=== PATIENT | female | born 1965 | race Caucasian/White ===

== ENCOUNTER 2017-03-21 08:44 | Outpatient (CLI) | payer OTHER ==
--- NOTE | 2017-03-21 11:52 | MMO ---
BILATERAL SCREENING MAMMOGRAM: HISTORY: A 51-year-old female for screening mammography. COMPARISON: 02/09/16, 01/03/15, 12/08/13. FINDINGS: Bilateral MLO and CC views of the breasts show predominantly fatty-replaced breast parenchyma. There is a benign-appearing calcification in the left breast. There is no evidence of suspicious mass, suero spicious clustered microcalcifications, or area of architectural distortion. Interpretation of this mammogram was performed with the assistance of computer-aided detection. IMPRESSION: BI-RADS category 2 - benign findings. Annual screening mammography is recommended. POS: [facility]
== END 2017-03-21 08:45 | disposition home or self-care (01) ==
LOC: SCSMAMMO 08:44
PROVIDERS: ATTEND Family Medicine
DX: Z12.31 Encounter for screening mammogram for malignant neoplasm of breast (principal)
CPT/HCPCS: 77067; G0202

== ENCOUNTER 2017-10-15 09:11 | Outpatient (CLI) | payer OTHER ==
[2017-10-15 10:31] LABS: Hemoglobin 12.8 g/dL (12.0-16.0); Mean Corpuscular HGB CONC 33.9 g/dL (32.0-36.0); Mean Corpuscular Hemoglobin 32.4 pg (27.0-31.0); Mean Corpuscular Volume 95.6 fL (78.0-98.0); Mean Platelet Volume 7.9 fL (7.4-10.4); Platelet Count 268 thou/uL (130-400); RBC Distribution Width 11.8 % (11.5-14.5); Red Blood Cell (RBC) Count 3.96 mill/uL (4.20-5.40); White Blood Cell (WBC) Count 9.6 thou/uL (4.8-10.8)
[2017-10-15 10:40] LABS: PTT 29.7 SEC (22.9-36.1)
[2017-10-15 10:45] LABS: Anion Gap 11 mmol/L (10-20); BUN (Urea Nitrogen) 19 mg/dL (9.8-20.1); Calc. Creatinine Clearance 0 mL/min (70-130); Calcium 9.2 mg/dL (7.8-10.44); Carbon Dioxide 25 mmol/L (22-29); Chloride 109 mmol/L (98-107); Estimated GFR-MDRD 78; Glucose 93 mg/dL (70-105); Potassium 4.1 mmol/L (3.5-5.1); Sodium 141 mmol/L (136-145)
--- NOTE | 2017-10-16 15:19 | EKG ---
Test Reason : Blood Pressure : / mmHG Vent. Rate : 073 BPM Atrial Rate : 073 BPM P-R Int : 144 ms QRS Dur : 072 ms QT Int : 376 ms P-R-T Axes : 061 065 026 degrees QTc Int : 414 ms Normal sinus rhythm Low voltage QRS Borderline ECG Confirmed by MISHEL HEARD ([id number]) on 10/16/2017 3:18:36 PM Referred By: JIM Confirmed By:MISHEL HEARD
== END 2017-10-15 09:12 | disposition home or self-care (01) ==
LOC: LABBT 09:11
PROVIDERS: ATTEND Urology
DX: Z01.818 Encounter for other preprocedural examination (principal)
CPT/HCPCS: 80048; 81001; 85027; 85610; 85730; 87086; 93005; 93010

== ENCOUNTER 2017-10-16 08:44 | Day surgery (SDC) | payer OTHER ==
[2017-10-15 09:48] VITALS: BMI 30.4
[2017-10-16] MEDS ORDERED: cefTRIAXone\\ROCEPHIN 2 GM in Sodium Chloride 0.9% 100 ML IVPB SCH (11:00)
--- NOTE | 2017-10-16 11:59 | RAD ---
KUB: Date: 10/16/17 INDICATION: History of preop. COMPARISON: CT abdomen and pelvis dated 10/04/17. FINDINGS: 7.0 mm distal left ureteral calculus does not appear appreciably changed from the comparison examinat ion and likely still present at the left UPJ. There is a 1.5 cm staghorn calculus overlying the right mid kidney. There are other punctate nonobstructing calculi involving the right kidney. Small phlebo liths seen within the lower pelvis. There are vascular clips within the lower left quadrant of the ab domen. There are suture lines seen within the right lower quadrant of the abdomen near the cecum. No acute osseous abnormality is evident. IMPRESSION: 1. Stable distal left ureteral calculus measuring 7.0 mm. 2. Stable right nephrolithiasis. POS: [facility]
[2017-10-16] MEDS ORDERED: Fentanyl 100 MCG/2 ML VIAL ONE ×2 (12:36→14:02)
[2017-10-16] MEDS ORDERED: PROPOFOL 200 MG/20 ML VIAL ONE (13:36)
[2017-10-16] MEDS ORDERED: Dexamethasone 20 MG/5 ML VIAL ONE (13:36)
[2017-10-16] MEDS ORDERED: Ondansetron HCl/PF 4 MG/2 ML Vial ONE (13:36)
[2017-10-16] MEDS ORDERED: Iothalamate Meglumine 60% 50 ML VIAL FS ONE (14:03)
[2017-10-16] MEDS ORDERED: Phenazopyridine HCl 97.5 MG TABLET ONE (14:18)
[2017-10-16] MEDS ORDERED: Oxybutynin 5 MG TAB ONE (14:18)
--- NOTE | 2017-10-16 14:37 | OP ---
DATE OF SERVICE: 10/16/2017 PCP: Dr. Shrestha. PREOPERATIVE DIAGNOSES: 1. A 52-year-old female with history of recurrent kidney stone with left distal ureteral stone, 8 mm , with moderate hydronephrosis. 2. Nonobstructing right renal calculi x4, right lower pole 1.5 x 9 mm, 2-4 mm punctate stones, 3-4 i n number. POSTOPERATIVE DIAGNOSES: 1. A 52-year-old female with history of recurrent kidney stone with left distal ureteral stone, 8 mm , with moderate hydronephrosis. 2. Nonobstructing right renal calculi x4, right lower pole 1.5 x 9 mm, 2-4 mm punctate stones, 3-4 i n number. PROCEDURES PERFORMED: Cystoscopy, bilateral retrograde, left dilation of the intramural ureter, rigi d ureteroscopy, laser lithotripsy of left distal intramural stone, 6 x 28 double-J ureteral stent mona cement with dangler. SURGEON: Cristy Wilkins D.O. ANESTHESIA: General. COMPLICATIONS: None apparent. SPECIMEN: Stone fragments for chemical analysis. INTRAOPERATIVE FINDINGS: 1. Large left distal ureteral stone at the level of the intramural/just proximal to the intramural u reter, radiopaque. 2. Right retrograde pyelogram negative for hydronephrosis or filling defect, nonobstructing large ri ght lower pole renal calculi. INDICATIONS FOR THE PROCEDURE AND HISTORY: Ms. Plummer is a 52-year-old female, last seen in 2012 u nderwent ureteral stone treatment. She represented as she had some discomfort in the left lower quad rant. Had a CT scan obtained by PCP demonstrating stone nidus as above. She presents today for uret eroscopy and laser lithotripsy. She has been relatively stone free, however, she has not passed a st one desired to proceed with elective ureteroscopy. Risks and complications of the procedure was revi ewed with her in detail including, but not limited to, bleeding, pain, infection, injury to adjacent organs, urosepsis, ureteral renal injury, stricture formation. She has had vague right lower back pa in. Therefore, I also offered a right retrograde pyelogram. She desired to proceed. DESCRIPTION OF THE PROCEDURE: After an informed consent is signed, the patient is taken to the opera ting room, placed in a dorsal lithotomy position with the genital area prepped and draped in the usua l surgical sterile fashion. Her urine culture is negative thus far. We did provide Rocephin. A 21- Vietnamese cystoscope was utilized for cystoscopy which demonstrated unremarkable bladder. There was no stone within the bladder itself. The UO was identified in normal anatomical location. The left UO w as identified and appeared somewhat small in caliber. It was intubated without any problems and a re trograde pyelogram demonstrated a large stone in the left intramural ureter. A 0.35 sensor wire was carefully negotiated into the left upper pole. At this time, we did dilate the intramural ureter wit h [employer] 12 Vietnamese 4 cm balloon just distal to the stone. The balloon was subsequently de flated and we passed a rigid ureteroscope without difficulty. A large spiculated renal stone was not ed, this had some mucosal embedment consistent with an obstructing stone. We laser lithotripsied the stone with 365 micron fiber at 1.0 joules. The stone fragmented into multiple tiny pieces. We did take care to break the stone carefully as there was some evidence of stone adherent to the ureteral m ucosa. We laser lithotripsied the stone rendered free. We evacuated all stone successfully without ureteral trauma. I did pass the rigid ureteroscope to the level of the proximal ureter at the level of L2-3 level with no evidence of obvious stone nidus. We surveyed the ureter, which demonstrated no evidence of ureteral mucosal trauma from the ureteroscopy. Again bullous edema where the stone obst ructing was noted. A 6 x 28 double-J ureteral stent was passed without difficulty. Bladder was comp letely emptied. As there is endoscopic clearance, the stent was left on dangler taped to the patient 's pubic symphysis. She will follow up with me next for cystoscopy stent pull on dangler my office. She is discharged with Omnicef until followup appointment, Colace p.r.n., VESIcare 5 mg one p.o. daily, AZO p.r.n., [place] 5/325, #50 p.r.n.
--- NOTE | 2017-10-16 14:41 | RAD ---
RETROGRADE IVP: HISTORY: A 52-year-old female with left ureteral calculus and nonobstructing right renal calculi. FINDINGS: Distal left ureteral obstructing calculus with dilatation of the proximal ureter and upper collecting system with follow-up placement of a stent. Injection of the right ureter demonstrates no evidence for ureteral calculus or ureteral obstruction. IMPRESSION: Obstructing distal left ureteral calculus with follow-up left ureteral stent placement. POS: [facility]
== END 2017-10-16 15:50 | disposition home or self-care (01) ==
LOC: SDC 08:44
PROVIDERS: ATTEND Urology
PROC: 0T768DZ Dilation of Right Ureter with Intraluminal Device, Via Natural or Artificial Opening Endoscopic (ICD-10-PCS; principal; 2017-10-16)
PROC: 0TF38ZZ Fragmentation in Right Kidney Pelvis, Via Natural or Artificial Opening Endoscopic (ICD-10-PCS; principal; 2017-10-16)
DX: N13.2 Hydronephrosis with renal and ureteral calculous obstruction (principal); M54.31 Sciatica, right side; F17.200 Nicotine dependence, unspecified, uncomplicated; Z88.1 Allergy status to other antibiotic agents; Z79.899 Other long term (current) drug therapy
CPT/HCPCS: 74018; 74420; 82365; 88300; 96374; C1758; C1769; J0696; J1100; J2405; J2704; J3010; J7050; Q9961

== ENCOUNTER 2017-12-02 10:12 | Outpatient (CLI) | payer OTHER | END 2017-12-02 10:13 | disposition home or self-care (01) | LOC: BICULT 10:12 | PROVIDERS: ATTEND Urology | DX: N20.0 Calculus of kidney (principal) | CPT/HCPCS: 36415; 74018; 76770; 80048; 81001; 87086 ==

== ENCOUNTER 2018-01-14 11:15 | Day surgery (SDC) | payer OTHER ==
[2018-01-14] MEDS ORDERED: Iothalamate Meglumine 60% 50 ML VIAL FS ONE (11:19)
[2018-01-14] MEDS ORDERED: Midazolam HCl 2 mg/2 ml Vial ONE (11:27)
[2018-01-14] MEDS ORDERED: Ondansetron HCl/PF 4 MG/2 ML Vial ONE (11:36)
[2018-01-14] MEDS ORDERED: PROPOFOL 200 MG/20 ML VIAL ONE (11:36)
[2018-01-14] MEDS ORDERED: Lidocaine 1% PF 5 ML VIAL ONE (11:36)
[2018-01-14] MEDS ORDERED: PHENYLEPHRINE-NS 100 MCG/ML 10 ML SYRINGE ONE (11:36)
[2018-01-14] MEDS ORDERED: Oxybutynin 5 MG TAB ONE (12:40)
[2018-01-14] MEDS ORDERED: Phenazopyridine HCl 97.5 MG TABLET ONE (12:40)
[2018-01-14] MEDS ORDERED: Fentanyl 100 MCG/2 ML VIAL ONE (12:50)
--- NOTE | 2018-01-14 13:54 | OP ---
DATE OF SERVICE: 01/14/2018 PREOPERATIVE DIAGNOSES: 1. History of large right renal pelvic stone now migrated into the UPJ measuring 14 mm. 2. Multiple right renal calculi, 3-4 mm in size. POSTOPERATIVE DIAGNOSES: 1. History of large right renal pelvic stone now migrated into the UPJ measuring 14 mm. 2. Multiple right renal calculi, 3-4 mm in size. PROCEDURE: Cystoscopy, right retrograde, 6 x 28 double-J ureteral stent. SURGEON: Cristy Wilkins D.O. ANESTHESIA: General. COMPLICATIONS: None apparent. DISPOSITION: To the recovery room in stable condition. SPECIMEN: None. INDICATIONS FOR THE PROCEDURE AND HISTORY: Ms. Plummer is a 52-year-old female well known to me for recurrent kidney stone. She was scheduled to have elective treatment of a large renal stone, howeve r, she presented to the emergency room due to distal migration of a large renal stone, now in the UPJ causing obstruction. She desires to proceed with stent. Risks and complications and indications re viewed including, but not limited to, bleeding, pain, infection, injury to adjacent organs, urosepsis , ureteral renal bladder injury. She desires to proceed. DESCRIPTION OF THE PROCEDURE: After an informed consent is signed, the patient was taken to the oper ating room, placed in a dorsal lithotomy position with the genital area prepped and draped in the usu al surgical sterile fashion. Broad-spectrum antibiotics were provided. A 21-Romanian cystoscope was u tilized, which demonstrated normal bladder mucosa. The UO was identified in normal anatomical locati on. She has a mild prolapse deviating the ureter distally. The UO's were identified. An open-ended catheter was passed without difficulty. This was passed to the level of the large renal pelvic ston e. I did perform a gentle retrograde pyelogram with 1:1 diluted contrast which demonstrated an obstr ucting stone. The stone was pushed to the renal pelvis. A 0.35 sensor wire was passed without diffi culty and a 6 x 28 double-J ureteral stent was passed without significant issues. She tolerated the procedure well and transported to the recovery room in stable condition. She will be discharged home with broad-spectrum antibiotics, Omnicef for a few days, [place] 5/325 #30, AZO p.r.n., VESIcare for b ladder spasm. She will follow up with me regarding to proceed with ureteroscopy, laser lithotripsy a t a later date.
--- NOTE | 2018-01-14 14:00 | RAD ---
RETROGRADE PYELOGRAM TWO VIEWS TAKEN IN OR: Indications: Right side renal stone. Images performed during retrograde procedure. FINDINGS/IMPRESSION: The initial image shows opacifications of the right collecting structures. There is a filling defect in the right renal pelvis, consistent with a calculus. The final image reveals right double pigtail ureteral stent in place. POS: [facility]
--- NOTE | 2018-01-14 15:47 | CON ---
DATE OF CONSULTATION: 01/14/2018 HISTORY OF PRESENT ILLNESS: Ms. 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 She previously underwent a left ureteroscopy, laser lithotripsy, subsequent stent removal. She has been fully informed regarding her large right contralateral kidney stone as scheduled for staged intervention of her right renal lithiasis end this month. She presented to the emergency room in [place] due to acute onset of right flank pain. She was provided pain medication. No fever. Presents as a transfer from [place] [facility] due to large right obstructing UPJ stone. The pain started this morning, denies chills. PAST MEDICAL HISTORY: Fibromyalgia, recurrent kidney stones, GERD, anxiety. PAST SURGICAL HISTORY: Hysterectomy, 1999; bilateral tubal ligation, 1994; history of right stent, ureteroscopy, laser lithotripsy, 11/2011; history of left ureteroscopy, laser lithotripsy, 10/16/2017 with subsequent stent pull. SOCIAL HISTORY: Tobacco abuse history, works as a nurse in [employer]. HOME MEDICATIONS: Include Advil, fludrocortisone, fexofenadine, bupropion, Klonopin p.r.n. ALLERGIES: Allergic to CIPROFLOXACIN, which causes rash. PHYSICAL EXAMINATION: VITAL SIGNS: Stable in the emergency room with no fever. HEENT: Grossly unremarkable. HEART: Regular rate. LUNGS: Clear. ABDOMEN: Soft, nontender, nondistended, vague right flank pain, no rigidity, no rebound is appreciated. GENITOURINARY EXAM: Atrophic vaginitis, otherwise negative. EXTREMITIES: No cyanosis, clubbing, or edema. PERTINENT LABORATORY DATA: Her prior CT scan from 09/2017 demonstrates left hydronephrosis, left ureteropelvic junction stone 7-8 mm, nonobstructing right renal calculi x4, right lower pole 1.5 cm stone. Her recent CT scan performed this morning without contrast dated 01/14/2018 demonstrates proximal migration of the large renal stone, measuring 14 mm, now in the UPJ with hydronephrosis. Multiple right renal calculi as previous. Left kidney is unremarkable with no evidence of ureteral renal calculi. IMPRESSION/PLAN: Ms. Plummer is a 52-year-old female with, 1. Recurrent kidney stone. She previously underwent a left ureteroscopy, laser lithotripsy with clearance. 2. Presents for right ureteropelvic junction stone. Previous large right renal stone has now migrated, now obstructing the ureteropelvic junction. Given large stone burden, she is to undergo cystoscopy, stent placement. Indications reviewed and she desires to proceed. MAGGY
== END 2018-01-14 14:14 | disposition home or self-care (01) ==
LOC: SDC 11:15
PROVIDERS: ATTEND Urology
PROC: 0T768DZ Dilation of Right Ureter with Intraluminal Device, Via Natural or Artificial Opening Endoscopic (ICD-10-PCS; principal; 2018-01-14)
DX: N20.2 Calculus of kidney with calculus of ureter (principal); Z88.1 Allergy status to other antibiotic agents
CPT/HCPCS: 74420; 96374; C1758; C1769; J2001; J2250; J2405; J2704; J3010; Q9961

== ENCOUNTER 2018-01-29 10:36 | Day surgery (SDC) | payer OTHER ==
[2018-01-28 13:29] VITALS: BMI 30.6
[2018-01-29] MEDS ORDERED: Piperacillin/Tazobactam 3.375 GM in Sodium Chloride 0.9% 100 ML IVPB SCH (11:00)
[2018-01-29 11:24] LABS: Hemoglobin 11.9 g/dL (12.0-16.0); Mean Corpuscular HGB CONC 32.9 g/dL (32.0-36.0); Mean Corpuscular Hemoglobin 31.8 pg (27.0-31.0); Mean Corpuscular Volume 96.7 fL (78.0-98.0); Platelet Count 295 thou/uL (130-400); RBC Distribution Width 12.1 % (11.5-14.5); Red Blood Cell (RBC) Count 3.74 mill/uL (4.20-5.40); White Blood Cell (WBC) Count 7.1 thou/uL (4.8-10.8)
[2018-01-29 11:29] LABS: INR-International Normal Ratio 1.1; PTT 33.7 SEC (22.9-36.1); Prothrombin Time 14.2 SEC (12.0-14.7)
[2018-01-29 11:38] LABS: Anion Gap 9 mmol/L (10-20); BUN (Urea Nitrogen) 17 mg/dL (9.8-20.1); Calc. Creatinine Clearance 99 mL/min (70-130); Calcium 9.2 mg/dL (7.8-10.44); Carbon Dioxide 24 mmol/L (22-29); Chloride 109 mmol/L (98-107); Estimated GFR-MDRD 78; Glucose 98 mg/dL (70-105); Potassium 3.9 mmol/L (3.5-5.1); Sodium 138 mmol/L (136-145)
--- NOTE | 2018-01-29 12:48 | RAD ---
SUPINE ABDOMEN: History: Pre op. Right renal stone. FINDINGS/IMPRESSION: There is a double pigtail right ureteral stent noted. There is an oblong shaped calculus overlying th e mid right kidney measuring up to 1.7 cm. Bowel gas pattern is unremarkable. Numerous phlebolith type calcifications in the pelvis. POS: [facility]
[2018-01-29] MEDS ORDERED: Famotidine/PF 20 mg/2ml Vial ONE (13:07)
[2018-01-29] MEDS ORDERED: Fentanyl 100 MCG/2 ML VIAL ONE ×2 (13:07→14:56)
[2018-01-29] MEDS ORDERED: Glycopyrrolate 0.2 MG/ML 5 ML SYRINGE ONE (13:34)
[2018-01-29] MEDS ORDERED: Ondansetron HCl/PF 4 MG/2 ML Vial ONE (13:34)
[2018-01-29] MEDS ORDERED: PROPOFOL 200 MG/20 ML VIAL ONE (13:34)
[2018-01-29] MEDS ORDERED: Dexamethasone 20 MG/5 ML VIAL ONE (13:34)
[2018-01-29] MEDS ORDERED: Lidocaine 1% PF 5 ML VIAL ONE (13:34)
[2018-01-29] MEDS ORDERED: HYDROmorphone 2 MG/ML VIAL ONE (14:36)
[2018-01-29] MEDS ORDERED: Oxybutynin 5 MG TAB ONE (14:52)
[2018-01-29] MEDS ORDERED: Phenazopyridine HCl 97.5 MG TABLET ONE (14:52)
--- NOTE | 2018-01-29 15:59 | RAD ---
RETROGRADE PYELOGRAM: HISTORY: A 52-year-old female with a history of right-sided ureteroscopy. COMPARISON: 01/14/2018. FINDINGS: Two spot films are available for interpretation. There is a right ureteral stent in place. There ar e several right-sided calcified phleboliths. A large right lower pole previously noted renal calculu s is no longer evident. IMPRESSION: Right ureteral stent. POS: [facility]
--- NOTE | 2018-01-29 16:13 | OP ---
DATE OF SERVICE: 01/29/2018 PREOPERATIVE DIAGNOSES: 1. A 52-year-old female with history of recurrent kidney stone, right flank pain due to migration of right 1.5 cm lower pole stone, status post stent. 2. Right nonobstructing renal calculi x2 : 5-6 mm each. POSTOPERATIVE DIAGNOSES: 1. A 52-year-old female with history of recurrent kidney stone, right flank pain due to migration of right 1.5 cm lower pole stone, status post stent. 2. Right nonobstructing renal calculi x2; 5- 6 mm each PROCEDURE: Cystoscopy, right retrograde pyelogram, flexible ureteroscopy, pyeloscopy, laser lithotripsy of multiple renal calculi, basket extraction of stone fragments, 6 x 28 double-J ureteral stent exchange. SURGEON: Cristy Wilkins D.O. ANESTHESIA: General. COMPLICATIONS: None apparent. DISPOSITION: To the recovery room in stable condition. SPECIMEN: Stone for chemical analysis. 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 She underwent treatment of a left urolithiasis in October, she was informed regarding elective treatment of her large right lower pole stone. She was scheduled for this today; however, presented approximately 2 weeks ago and she presented with acute flank pain as there was migration of the large 1.5 cm stone into the UPJ proximal ureter status post stent. She presents today for ureteroscopy, laser lithotripsy. I discussed with patient in detail regarding alternative option including ESWL, percutaneous nephrolithotomy. Risks and complications and stone free rate with each modality was reviewed with her in detail. She has chosen ureteroscopy, laser lithotripsy. With a full understanding, we had a possible secondary procedure due to persistent stone nidus. All questions answered to her satisfaction, she desired to proceed. DESCRIPTION OF THE PROCEDURE: After an informed consent is signed, the patient is taken to the operating room, placed in a dorsal lithotomy position with the genital prepped and draped in the usual surgical sterile fashion. Broad- spectrum antibiotics were provided. Bilateral MARY hose, SCDs were placed. A 21 -Turkmen cystoscope was utilized for cystoscopy and a previously placed ureteral stent was removed to the level of the meatus and a 0.35 sensor wire was placed through the stent into the right upper pole. The stone was clearly visible on colposcopy due to large radiopaque density. At this time, a 10 Turkmen dual- lumen access sheath was passed over the guidewire and a retrograde pyelogram was performed confirming proper placement of wire and a second 0.35 Super Stiff working wire was placed. The dual-lumen access sheath was then completely removed, and the safety wire secured. Using the Super Stiff wire 13/15 Turkmen x 28 navigator was able to be passed without difficulty as she had an indwelling stent for approximately 2 weeks. This passed without difficulty to the proximal ureter and a flexible ureteroscope, digital disposable scope was passed over the working wire to the level of the renal pelvis upper pole. The wire was then removed and we surveyed the collecting system demonstrating a large right lower pole stone. There was a second nidus in the right mid pole ovoid stuck to the renal papilla, approximately 3-4 mm in the right lower pole anterior calyceal stones curvilinear flat in nature approximately 5-6 mm. We laser lithotripsied the large stone burden measuring 1.5 cm first using 365 micron laser fiber. That setting was utilized and we fragmented the stone into multiple fragmented debris. Using 0 tip nitinol basket, we retrieved these atraumatically through the sheath. At the end of the procedure, what remained of the main stone nidus was dust-like stone debris. At this time, we paid attention to the right mid pole stone which was basket extracted intact without any difficulty. The right lower pole stone was somewhat difficult to engage to the anterior calyceal location; however, we were able to basket it put it in the upper pole position and laser lithotripsy and fragments were retrieved uneventfully. At the end of the procedure, what remained were minute dust-like stone particles which she should pass uneventfully. The ureter was surveyed which demonstrating no evidence of ureteral stone, mucosal trauma. At this time , the flexible ureteroscope was removed. A 6 x 28 double-J ureteral stent was then passed over the wire and the wire completely removed. At the end of the procedure, all wires were removed and a 6 x 20 stent was confirmed to be in proper position. Bladder was entered complete and she tolerated the procedure well and transported to the recovery room in stable condition. She is discharged with [place] 5/325, #30. Bactrim-DS until followup Colace, AZO p.r.n. , oxybutynin 10 mg one p.o. daily, Zofran 4 mg ODT per patient's request #30. She also requests Diflucan x1 dose as she has tendency to get yeast infection with antibiotic therapy. I encouraged the patient regarding prophylaxis. She will follow up with me next with KUB one hour prior to the appointment. If no significant stone burden of debris, we will perform cystoscopy local stent pull. Of note, she has 3 lower pelvic phleboliths, one of which lies in the course of the ureter which is extra ureteral in origin which I will make note of and follow up KUB. MTDD
== END 2018-01-29 16:42 | disposition home or self-care (01) ==
LOC: SDC 10:36
PROVIDERS: ATTEND Urology
PROC: 0T768DZ Dilation of Right Ureter with Intraluminal Device, Via Natural or Artificial Opening Endoscopic (ICD-10-PCS; principal; 2018-01-29)
PROC: 0TF38ZZ Fragmentation in Right Kidney Pelvis, Via Natural or Artificial Opening Endoscopic (ICD-10-PCS; principal; 2018-01-29)
DX: N20.2 Calculus of kidney with calculus of ureter (principal); K21.9 Gastro-esophageal reflux disease without esophagitis; F17.200 Nicotine dependence, unspecified, uncomplicated; Z79.899 Other long term (current) drug therapy; Z88.1 Allergy status to other antibiotic agents
CPT/HCPCS: 74018; 74420; 80048; 82365; 85027; 85610; 85730; 88300; 96374; C1758; C1769; J0131; J1100; J1170; J2001; J2405; J2543; J2704; J3010; J7050; S0028

== ENCOUNTER 2018-02-06 07:50 | Outpatient (CLI) | payer OTHER ==
--- NOTE | 2018-02-06 09:39 | RAD ---
ABDOMEN 1 VIEW: Date: 02/06/18 HISTORY: Nephrolithiasis. COMPARISON: Retrograde IVP dated 01/29/18. FINDINGS: The previously noted right-sided calculus is not as well defined on today's examination. This had pre viously measured up to 1.7 cm in size. No definite new calculus seen along the expected location of t he right ureter. Right double-J ureteral stent is in place. IMPRESSION: Previously noted 1.7 cm calculus is not well defined on today's examination. POS: [facility]
== END 2018-02-06 07:51 | disposition home or self-care (01) ==
LOC: BICRAD 07:50
PROVIDERS: ATTEND Urology
DX: N20.0 Calculus of kidney (principal)
CPT/HCPCS: 74018

== ENCOUNTER 2018-08-07 09:34 | Outpatient (CLI) | payer OTHER ==
--- NOTE | 2018-08-07 10:22 | ULT ---
Renal ultrasound: 08/07/2018 HISTORY: Recurrent kidney stones TECHNIQUE: Multiplanar grayscale sonographic imaging of the kidneys and urinary bladder obtained. Renal calculi may not be visualized on ultrasound secondary to technique. FINDINGS: Right kidney measures 9.4 x 5.1 x 5.1 cm. Left kidney measures 9.2 x 6.5 x 5.3 cm. No discrete renal stone, hydronephrosis, or mass lesion. Urinary bladder appears grossly unremarkable, with a volume of 156 cc. IMPRESSION: Unremarkable renal ultrasound.
--- NOTE | 2018-08-07 10:53 | RAD ---
2 VIEWS ABDOMEN: Date: 08/07/18 HISTORY: Recurrent renal calculi. FINDINGS: 2 views abdomen obtained. Comparison made to previous exam from 02/06/18. 2 views of abdomen demonstrate removal of the right-sided ureteral stent. Pelvic phleboliths seen. Lucia rgical sutures seen over the cecum. No definite evidence of radiopaque foreign bodies seen to suggest recurrent renal calculi. Osseous structures are intact. IMPRESSION: Interval removal of right ureteral stent. POS: [facility]
== END 2018-08-07 09:35 | disposition home or self-care (01) ==
LOC: ULT 09:34
PROVIDERS: ATTEND Urology
DX: N20.0 Calculus of kidney (principal); Z96.0 Presence of urogenital implants; R35.0 Frequency of micturition
CPT/HCPCS: 36415; 74018; 76770; 80048; 81003

== ENCOUNTER 2019-04-15 09:03 | Outpatient (CLI) | payer OTHER ==
--- NOTE | 2019-04-15 09:31 | MMO ---
Bilateral MAMMO Bilat Screen DDI+MINNA. CLINICAL HISTORY: Patient is 53 years old and is seen for screening. The patient has the following family history of breast cancer: mother. VIEWS: The views performed were: bilateral craniocaudal with tomosynthesis and bilateral mediolateral oblique with tomosynthesis. FILMS COMPARED: The present examination has been compared to prior imaging studies performed at [facility] on 12/08/2013, 01/03/2015 and 03/21/2017, and at [facility] on 02/09/2016. This study has been interpreted with the assistance of computer-aided detection. MAMMOGRAM FINDINGS: There are scattered fibroglandular densities. There are no suspicious masses, suspicious calcifications, or new areas of architectural distortion. IMPRESSION: THERE IS NO MAMMOGRAPHIC EVIDENCE OF MALIGNANCY. A ROUTINE FOLLOW-UP MAMMOGRAM IN 1 YEAR IS RECOMMENDED. THE RESULTS OF THIS EXAM WERE SENT TO THE PATIENT. ACR BI-RADS Category 1 - Negative MAMMOGRAPHY NOTE: 1. A negative mammogram report should not delay a biopsy if a dominant of clinically suspicious mass is present. 2. Approximately 10% to 15% of breast cancers are not detected by mammography. 3. Adenosis and dense breasts may obscure an underlying neoplasm. Reported by: OSMANY RUSHING MD Electonically Signed: [id number]
== END 2019-04-15 09:04 | disposition home or self-care (01) ==
LOC: BICMAMMO 09:03
PROVIDERS: ATTEND Family Medicine
DX: Z12.31 Encounter for screening mammogram for malignant neoplasm of breast (principal); Z80.3 Family history of malignant neoplasm of breast
CPT/HCPCS: 77063; 77067

== ENCOUNTER 2021-02-01 08:17 | Outpatient (CLI) | payer OTHER | END 2021-02-01 08:18 | disposition home or self-care (01) | LOC: BICMRI 08:17 | PROVIDERS: ATTEND Nurse Practitioner Family | DX: M54.16 Radiculopathy, lumbar region (principal); M48.061 Spinal stenosis, lumbar region without neurogenic claudication; M96.0 Pseudarthrosis after fusion or arthrodesis; Z98.890 Other specified postprocedural states | CPT/HCPCS: 72148 ==

== ENCOUNTER 2021-04-11 13:22 | Outpatient (CLI) | payer OTHER ==
[2021-04-11 14:19] LABS: Hemoglobin 11.4 g/dL (12.0-15.5); Mean Corpuscular HGB CONC 32.7 g/dL (32.0-36.0); Mean Corpuscular Hemoglobin 32.9 pg (27.0-33.0); Mean Corpuscular Volume 100.6 fl (81.6-98.3); Mean Platelet Volume 10.8 fl (7.4-10.4); Platelet Count 297 10x3/uL (150-450); RBC Distribution Width 12.6 % (11.5-14.5); Red Blood Cell (RBC) Count 3.47 10x6/uL (3.90-5.03); White Blood Cell (WBC) Count 14.3 10x3/uL (3.5-10.5)
[2021-04-11 14:24] LABS: PTT 25.9 sec (22.0-33.0); Prothrombin Time 10.9 sec (9.5-12.1)
[2021-04-12 12:50] LABS: SARS-CoV-2 PCR by NAA Not Detected (NotDetected)
== END 2021-04-11 13:23 | disposition home or self-care (01) ==
LOC: LABBT 13:22
PROVIDERS: ATTEND Neurological Surgery
DX: Z01.812 Encounter for preprocedural laboratory examination (principal); M51.26 Other intervertebral disc displacement, lumbar region; Z20.822 Contact with and (suspected) exposure to COVID-19
CPT/HCPCS: 85027; 85610; 85730; U0003; U0005

== ENCOUNTER 2021-04-14 05:54 | Day surgery (SDC) | payer BC ==
[2021-04-10 13:07] VITALS: BMI 28.7
[2021-04-14] MEDS ORDERED: Thrombin 5000 UNITS/5 ML VIAL ONE (06:10)
[2021-04-14] MEDS ORDERED: Bupivacaine PF 0.5% 30 ML VIAL ONE (06:10)
[2021-04-14] MEDS ORDERED: Neomycin-Polymyxin 1 ML AMP ONE (06:10)
[2021-04-14] MEDS ORDERED: EPINEPHrine 1 MG/ML AMP ONE (06:10)
[2021-04-14] MEDS ORDERED: Fentanyl 100 MCG/2 ML VIAL ONE ×4 (06:37→10:40)
[2021-04-14] MEDS ORDERED: Morphine 4 MG/ML VIAL ONE (06:37)
[2021-04-14] MEDS ORDERED: ceFAZolin 2 GM/DEX 5% 100 ML BAG ONE (06:38)
[2021-04-14] MEDS ORDERED: Glycopyrrolate 0.2 MG/ML 5 ML SYRINGE ONE (07:03)
[2021-04-14] MEDS ORDERED: Lidocaine 1% PF 5 ML VIAL ONE (07:03)
[2021-04-14] MEDS ORDERED: PROPOFOL 200 MG/20 ML VIAL ONE (07:03)
[2021-04-14] MEDS ORDERED: Phenylephrine 10 MG/ML VIAL ONE (07:03)
[2021-04-14] MEDS ORDERED: Ketorolac Tromethamine 30 MG/ML VIAL ONE (07:03)
[2021-04-14] MEDS ORDERED: Ondansetron PF 4 MG/2 ML Vial ONE (07:03)
[2021-04-14] MEDS ORDERED: Dexamethasone 20 MG/5 ML VIAL ONE (07:03)
[2021-04-14] MEDS ORDERED: Rocuronium Bromide 10 MG/ML (10ML VIAL) ONE (07:03)
[2021-04-14] MEDS ORDERED: Promethazine HCl 25 MG/ML VIAL ONE (10:37)
== END 2021-04-14 14:20 | disposition home or self-care (01) ==
LOC: SDC 05:54
PROVIDERS: ATTEND Neurological Surgery
PROC: 01NB0ZZ Release Lumbar Nerve, Open Approach (ICD-10-PCS; principal; 2021-04-14)
PROC: 0SB20ZZ Excision of Lumbar Vertebral Disc, Open Approach (ICD-10-PCS; principal; 2021-04-14)
DX: M48.062 Spinal stenosis, lumbar region with neurogenic claudication (principal); M51.16 Intervertebral disc disorders with radiculopathy, lumbar region; F17.210 Nicotine dependence, cigarettes, uncomplicated; Z79.1 Long term (current) use of non-steroidal anti-inflammatories (NSAID); Z79.899 Other long term (current) drug therapy; Z88.1 Allergy status to other antibiotic agents
CPT/HCPCS: 76000; J0171; J1100; J1885; J2270; J2370; J2405; J2550; J2704; J3010; J3370; S0020

== ENCOUNTER 2021-09-18 10:21 | Outpatient (CLI) | payer BC | END 2021-09-18 10:22 | disposition home or self-care (01) | LOC: TBSIIMAG 10:21 | PROVIDERS: ATTEND Neurological Surgery | DX: M46.1 Sacroiliitis, not elsewhere classified (principal); M48.061 Spinal stenosis, lumbar region without neurogenic claudication | CPT/HCPCS: 72148 ==

== ENCOUNTER 2023-11-01 11:22 | Outpatient (CLI) | payer BC | END 2023-11-01 11:23 | disposition home or self-care (01) | LOC: BICMAMMO 11:22 | PROVIDERS: ATTEND Family Medicine | DX: Z12.31 Encounter for screening mammogram for malignant neoplasm of breast (principal); Z80.3 Family history of malignant neoplasm of breast; N64.89 Other specified disorders of breast | CPT/HCPCS: 77063; 77067 ==

== ENCOUNTER 2024-05-15 09:11 | Outpatient (CLI) | payer BC | END 2024-05-15 09:12 | disposition home or self-care (01) | LOC: BICMAMMO 09:11 | PROVIDERS: ATTEND Family Medicine | DX: R92.8 Other abnormal and inconclusive findings on diagnostic imaging of breast (principal); N64.89 Other specified disorders of breast | CPT/HCPCS: G0279 ==